=== PATIENT | female | born 2000 | race Caucasian/White ===

== ENCOUNTER 2024-11-25 20:21 | Inpatient (IN) | payer MEDICAID ==
[~2024-11-25] VITALS: Ht 162.6 cm; Wt 50.2 kg
[2024-11-25] MEDS ORDERED: PROP20TA18 PO (20:39)
[2024-11-25] MEDS ORDERED: FLUO-418 PO (20:39)
[2024-11-25] MEDS: DiphenhydrAMINE HCL 50 MG/ML VIAL IM ONE (21:46)
[2024-11-25] MEDS: HALOPERIDOL LACTATE 5 MG/ML VIAL IM ONE (21:46)
[2024-11-25] MEDS: LORazepam 2 MG/ML VIAL IM ONE (21:46)
[2024-11-25 22:56] LABS: GLUCOMETER DEV NAME(LOC) POC.BV; POC SARS-COV2 AG, FIA NEGATIVE (NEGATIVE)
[2024-11-25] MEDS ORDERED: INFLUENZA VIRUS VACCINE TVS (6MO+) 2024-25/PF 45 MCG/0.5 ML SYRINGE IM. ONE (23:30)
[2024-11-26 00:37] VITALS: BP 116/68; PULSE 80; RESP 20; TEMP 97.2; O2SAT 99
[2024-11-26] MEDS ORDERED: BENZOCAINE/MENTHOL [CEPACOL] LOZENGE PO PRN (06:45)
[2024-11-26] MEDS ORDERED: LOPERAMIDE HCL 2 MG CAPSULE PO PRN (06:45)
[2024-11-26] MEDS ORDERED: CloNIDine HCL 0.1 MG TABLET PO PRN (06:45)
[2024-11-26] MEDS ORDERED: PETROLATUM,WHITE 28 GM JELLY TP PRN (06:45)
[2024-11-26] MEDS ORDERED: BACITRACIN 28 GM OINTMENT TP PRN (06:45)
[2024-11-26] MEDS ORDERED: MAG HYDROX/ALUMINUM HYD/SIMETH ES 30 ML SUSPENSION UDCUP PO PRN (06:45)
[2024-11-26] MEDS ORDERED: OMEPRAZOLE 20 MG CAPSULE PO PRN (06:45)
[2024-11-26] MEDS ORDERED: ACETAMINOPHEN 325 MG TABLET PO PRN (06:45)
[2024-11-26] MEDS ORDERED: DOCUSATE SODIUM 100 MG CAPSULE PO PRN (06:45)
[2024-11-26] MEDS ORDERED: ALBUTEROL SULFATE HFA 90 MCG/PUFF 8 GM INHALER IH PRN (06:45)
[2024-11-26] MEDS ORDERED: MAGNESIUM HYDROXIDE SUSPENSION 30 ML UDCUP PO PRN (06:45)
[2024-11-26 08:19] VITALS: BP 128/61; PULSE 96; RESP 16; TEMP 99; O2SAT 98
[2024-11-26 08:41] LABS: BASOPHILS % (AUTO) 1.2 % (0.0-2.0); EOSINOPHILS % (AUTO) 1.1 % (1.0-6.0); HEMATOCRIT 33.3 % (36-46); HEMOGLOBIN 10.5 g/dL (12.0-16.0); LYMPHOCYTES # (AUTO) 1.2 K/uL (1.0-4.8); MEAN CORPUSCULAR HEMOGLOBIN 24.4 pg (26.0-34.0); MEAN CORPUSCULAR HGB CONC 31.6 G/dL (31.0-37.0); MEAN CORPUSCULAR VOLUME 77 fL (80-100); MONOCYTES # (AUTO) 0.4 K/uL (0.1-1.0); MONOCYTES % (AUTO) 9.8 % (2.0-9.0); NEUTROPHILS # (AUTO) 2.7 K/uL (1.8-7.7); NEUTROPHILS % (AUTO) 59.9 % (40.0-70.0); PLATELET COUNT (AUTO) 263 K/uL (150-450); RED BLOOD CELL COUNT(AUTO) 4.32 MIL/uL (4.00-5.20); RED CELL DISTRIBUTION WIDTH 17.3 % (11.5-14.5); WHITE BLOOD COUNT (AUTO) 4.4 K/uL (4.5-11.0)
[2024-11-26 08:50] LABS: HEMOGLOBIN A1C 5.3 % (3.8-5.6)
[2024-11-26] MEDS: LORazepam 2 MG TABLET PO PRN (09:00)
[2024-11-26 09:12] LABS: ALANINE AMINOTRANSFERASE 17 U/L (12-78); ALBUMIN 3.2 g/dL (3.4-5.0); ALKALINE PHOSPHATASE 43 U/L (46-116); ANION GAP 9 mmol/L (8-16); ASPARTATE AMINOTRANSFERASE 15 U/L (15-37); BILIRUBIN,TOTAL 0.9 mg/dL (0.1-1.0); CALCIUM, TOTAL 8.8 mg/dL (8.8-10.5); CARBON DIOXIDE 26 mmol/L (22-29); CHLORIDE 104 mmol/L (98-107); CHOL/HDL RATIO 2.6 (3.9-5.7); CHOLESTEROL 119 mg/dL (131-200); CREATININE 0.65 mg/dL (0.60-1.30); GLOMERULAR FILTR. RATE CALC > 60 mL/min (>60); GLUCOSE,RANDOM 97 mg/dL (70-110); HCG,QUANTITATIVE < 1 mIU/mL (0-6); HDL CHOLESTEROL 45 mg/dL (40-60); LDL CHOL (CALC.) 66 mg/dL (0-130); POTASSIUM 3.4 mmol/L (3.5-5.1); SODIUM SERUM 139 mmol/L (136-145); TOTAL PROTEIN, SERUM 6.9 g/dL (6.4-8.2); TRIGLYCERIDES 39 mg/dL (15-150); UREA NITROGEN, BLOOD 7 mg/dL (7-18)
[2024-11-26 09:27] LABS: RBC MORPHOLOGY COMMENT ABNORMAL RBC MORPH
[2024-11-26 20:02] VITALS: BP 116/70; PULSE 102; RESP 18; TEMP 98.1; O2SAT 99
[2024-11-26] MEDS: ZOLPIDEM TARTRATE 10 MG TABLET PO PRN (20:31)
[2024-11-27 08:03] LABS: APPEARANCE,URINE HAZY (CLEAR); BILIRUBIN,URINE NEGATIVE (NEGATIVE); COLOR,URINE YELLOW (YELLOW); GLUCOSE, URINE (UA) NEGATIVE (NEGATIVE); KETONES,URINE NEGATIVE (NEGATIVE); LEUKOCYTE ESTERASE ,URINE SMALL (NEGATIVE); NITRATE,URINE NEGATIVE (NEGATIVE); OCCULT BLOOD,URINE TRACE (NEGATIVE); PROTEIN,URINE TRACE mg/dL (NEGATIVE); SPECIFIC GRAVITIY, URINE 1.021 (1.003-1.030); UROBILINOGEN,URINE <=1.0 mg/dL (<=1.0)
[2024-11-27 08:09] LABS: ALCOHOL, URINE DRUG SCREEN NEGATIVE (NEGATIVE); AMPHET/METH SCREEN,URINE NEGATIVE (NEGATIVE); BARBITURATE SCREEN, URINE NEGATIVE (NEGATIVE); BENZODIAZEPINES SCREEN,URINE NEGATIVE (NEGATIVE); CANNABINOID SCREEN,URINE NEGATIVE (NEGATIVE); COCAINE SCREEN,URINE NEGATIVE (NEGATIVE); METHADONE SCREEN, URINE NEGATIVE (NEGATIVE); OPIATE SCREEN,URINE NEGATIVE (NEGATIVE); PHENCYCLIDINE SCREEN,URINE NEGATIVE (NEGATIVE)
[2024-11-27 08:13] VITALS: BP 111/69; PULSE 100; RESP 16; TEMP 97.9; O2SAT 98
[2024-11-27 08:32] LABS: RBC,URINE 0-2 /HPF (0-2)
[2024-11-27 08:33] LABS: BACTERIA,URINE Many /HPF (None Seen); SQUAMOUS EPITHELIAL CELL,UR Many /LPF (None Seen)
[2024-11-27 12:13] VITALS: BP 114/95; PULSE 117; RESP 18; TEMP 98.1; O2SAT 95
[2024-11-27] MEDS: RisperiDONE 1 MG TABLET PO SCH (16:11)
[2024-11-27 22:58] VITALS: BP 102/68; PULSE 100; RESP 18; TEMP 98.4; O2SAT 98
[2024-11-28 08:03] VITALS: BP_SYST 113; BP_SYST 149; BP_DIAS 64; BP_DIAS 83; PULSE 92; PULSE 98; RESP 16; RESP 17; TEMP 97.1; TEMP 97.9; O2SAT 98
[2024-11-28] MEDS: HALOPERIDOL 5 MG TABLET PO PRN (09:19)
[2024-11-28 20:18] VITALS: BP_SYST 106; BP_SYST 127; BP_DIAS 70; BP_DIAS 75; PULSE 95; PULSE 98; RESP 18; TEMP 98.1; TEMP 98.9; O2SAT 97; O2SAT 99
[2024-11-28] MEDS: IBUPROFEN 600 MG TABLET PO PRN (20:35)
[2024-11-29 08:12] VITALS: BP 105/70; PULSE 87; RESP 16; TEMP 97.7; O2SAT 100
[2024-11-29] MEDS ORDERED: ONDANSETRON 4 MG TABLET ONE (18:37)
[2024-11-29] MEDS: ONDANSETRON 4 MG TABLET PO PRN (18:39)
[2024-11-29 20:13] VITALS: BP 113/67; PULSE 87; RESP 18; TEMP 98.1; O2SAT 100
[2024-11-30 08:37] VITALS: BP 107/69; PULSE 98; RESP 16; TEMP 97.5; O2SAT 99
[2024-11-30] MEDS ORDERED: RISP-31 PO (11:57)
== END 2024-11-30 14:13 | disposition home or self-care (01) | DRG 753 ==
LOC: B3A 20:41
PROVIDERS: ADMIT Psychiatry & Neurology Psychiatry; ATTEND Psychiatry & Neurology Psychiatry
DX: F31.9 Bipolar disorder, unspecified (principal); F10.90 Alcohol use, unspecified, uncomplicated; F12.90 Cannabis use, unspecified, uncomplicated; K59.00 Constipation, unspecified; G47.00 Insomnia, unspecified; F41.9 Anxiety disorder, unspecified; Z20.822 Contact with and (suspected) exposure to COVID-19; J45.909 Unspecified asthma, uncomplicated; Y90.9 Presence of alcohol in blood, level not specified; F94.0 Selective mutism; Z79.899 Other long term (current) drug therapy
CPT/HCPCS: 80053; 80061; 80307; 81001; 83036; 84702; 85025; 87086; Q0162